=== PATIENT | female | born 1945 | race Caucasian/White ===

== ENCOUNTER → 2020-09-11 | Outpatient (CLI) | payer MEDICARE ==
--- NOTE | 2020-09-11 14:00 | REP ---
INDICATION: CHRONIC KIDNEY DISEASE, STAGE 4. COMPARISON: None. TECHNIQUE: Real-time sonographic evaluation of the kidneys is performed. FINDINGS: There is somewhat increased echotexture of both kidneys suggesting some degree of medical renal disease. There is no hydronephrosis bilaterally. There is a 1 cm cyst in the upper pole the right kidney. The right kidney measures 9.1 x 5.0 x 3.1 cm. Left renal dimensions are 11.0 x 4.4 x 4.1 cm. IMPRESSION: Increased echotexture of the kidneys suggesting medical renal disease. No hydronephrosis. 1 cm cyst upper pole right kidney. <Electronically signed by Gerardo Regalado > 09/11/20 [id number]
--- NOTE | 2020-09-11 14:04 | REP ---
INDICATION: CHRONIC KIDNEY DISEASE, STAGE 4. COMPARISON: None. TECHNIQUE: Real-time sonographic evaluation of urinary bladder performed. FINDINGS: The bladder measures 5.8 x 9.2 x 5.1 cm for total volume of 178 cc. Postvoid residual 71 cc is 40% of the regional volume. Bladder demonstrates no wall thickening, mass or calculus. Ureteral jets could not be visualized in the urinary bladder with Doppler color evaluation. Incidental note is made of a hypoechoic area posterior to the bladder measuring approximately 4.6 x 4.2 x 3.6 cm. This is separate from the bladder. This could represent fluid-filled rectum or portion of the cervix, status post hysterectomy. IMPRESSION: No bladder mass or calculus. Post void residual in the urinary bladder approximately 40% of the regional volume as discussed above. Rounded hypoechoic area posterior to the urinary bladder slightly greater than 4 cm in diameter most likely represents fluid-filled rectum or a portion of the cuff of the cervix status post hysterectomy. <Electronically signed by Gerardo Regalado > 09/11/20 1400
== END ==
LOC: M RAD 12:26
PROVIDERS: ATTEND Internal Medicine Nephrology
DX: N18.4 Chronic kidney disease, stage 4 (severe) (principal); I12.9 Hypertensive chronic kidney disease with stage 1 through stage 4 chronic kidney disease, or unspecified chronic kidney disease; E11.22 Type 2 diabetes mellitus with diabetic chronic kidney disease; N28.1 Cyst of kidney, acquired; N32.89 Other specified disorders of bladder; R39.198 Other difficulties with micturition

== ENCOUNTER → 2020-10-05 | Outpatient (REF) | payer MEDICARE, OTHER ==
[2020-10-05 14:03] LABS: BASO % 0.1 % (0.0-1.0); EOS # 0.5 10^3/uL (0.0-0.5); EOS % 6.3 % (0.0-3.0); HEMATOCRIT 40.1 % (36.0-47.0); HEMOGLOBIN 12.2 g/dl (12.0-15.5); LYMPH # 1.4 10^3/uL (1.5-5.0); LYMPH % 19.2 % (24.0-44.0); MEAN CORPUSCULAR HGB CONC 30.4 g/dl (32.0-36.5); MEAN CORPUSCULAR VOLUME 95.2 fl (80.0-96.0); MONO # 0.5 10^3/uL (0.0-0.8); MONO % 6.9 % (2.0-8.0); NEUTROPHILS % 67.1 % (36.0-66.0); PLATELET COUNT, AUTOMATED 215 10^3/uL (150-450); RED BLOOD COUNT 4.21 10^6/uL (4.00-5.40); WHITE BLOOD COUNT 7.5 10^3/uL (4.0-10.0)
[2020-10-05 14:19] LABS: HEMOGLOBIN A1c 5.3 %
[2020-10-05 14:39] LABS: ALBUMIN 3.3 GM/DL (3.2-5.2); BILIRUBIN,TOTAL 0.5 MG/DL (0.2-1.0); C REACTIVE PROTEIN QUANTITATIV 0.3 MG/DL (0.00-0.30); CALCIUM LEVEL 9.2 MG/DL (8.8-10.2); CHOLESTEROL RISK RATIO 2.65 (<5); CREATININE FOR GFR 2.44 MG/DL (0.55-1.30); FREE T4 1.48 NG/DL (0.76-1.46); GLOMERULAR FILTRATION RATE 20.7 (>39); POTASSIUM SERUM 4.7 MEQ/L (3.5-5.1); THYROID STIMULATING HORMONE 2.31 uIU/ML (0.358-3.740); TOTAL PROTEIN 7.9 GM/DL (6.4-8.2)
== END ==
LOC: M SFHCPLAZ 09:58
PROVIDERS: ATTEND Physician Assistant Medical
DX: I48.19 Other persistent atrial fibrillation (principal); Z13.220 Encounter for screening for lipoid disorders; Z13.1 Encounter for screening for diabetes mellitus; Z79.899 Other long term (current) drug therapy
CPT/HCPCS: 36415; 80053; 80061; 83036; 84439; 84443; 85025; 86140; G0463

== ENCOUNTER → 2020-11-16 | Outpatient (REF) | payer MEDICARE, OTHER ==
[2020-11-16 15:48] LABS: HEMATOCRIT 41.3 % (36.0-47.0)
[2020-11-16 16:27] LABS: FREE T4 1.58 NG/DL (0.76-1.46); PTH INTACT 110.7 PG/ML (18.5-88.0); THYROID STIMULATING HORMONE 1.9 uIU/ML (0.358-3.740); TOTAL 25(OH) VITAMIN D 38.2 NG/ML (30.0-100.0)
== END ==
LOC: M SFHCPLAZ 12:16
PROVIDERS: ATTEND Physician Assistant Medical
DX: E55.9 Vitamin D deficiency, unspecified (principal); E53.8 Deficiency of other specified B group vitamins; G62.9 Polyneuropathy, unspecified; R41.3 Other amnesia
CPT/HCPCS: 36415; 82306; 82607; 82747; 83655; 83970; 84439; 84443; G0463

== ENCOUNTER → 2021-01-14 | Outpatient (CLI) | payer MEDICARE ==
[2021-01-14 16:11] LABS: FOLATE > 24.0 NG/ML; TOTAL PROTEIN 7.6 GM/DL (6.4-8.2); VITAMIN B12 LEVEL 585 PG/ML
[2021-01-14 19:04] LABS: HEMOGLOBIN A1c 5.3 %
== END ==
LOC: M PLALAB 10:56
PROVIDERS: ATTEND Psychiatry & Neurology Neurology
DX: R25.1 Tremor, unspecified (principal); E53.8 Deficiency of other specified B group vitamins

== ENCOUNTER → 2021-02-22 | Outpatient (REF) | payer MEDICARE, OTHER ==
[2021-02-22 13:33] LABS: C REACTIVE PROTEIN QUANTITATIV < 0.30 MG/DL (0.00-0.30); HEPATITIS B SURFACE ANTIBODY NEGATIVE (POSITIVE); IMMUNOGLOBULIN G 1540 MG/DL (681-1648); TOTAL PROTEIN 8.2 GM/DL (6.4-8.2)
[2021-02-22 13:43] LABS: HEPATITIS B SURFACE ANTIGEN NEGATIVE (NEGATIVE)
[2021-02-23 11:15] LABS: ALBUMIN 4.43 GM/DL (3.29-5.55); ALPHA-1-GLOBULIN % 3.6 % (2.9-4.9); ALPHA-2-GLOBULINS 0.87 GM/DL (0.42-0.99); ALPHA-2-GLOBULINS % 10.6 % (7.1-11.8); BETA-1-GLOBULINS 0.55 GM/DL (0.28-0.60); BETA-1-GLOBULINS % 6.7 % (4.7-7.2); BETA-2-GLOBULINS 0.54 GM/DL (0.19-0.55); BETA-2-GLOBULINS % 6.6 % (3.2-6.5); GAMMA GLOBULIN % 18.5 % (11.1-18.8); GAMMA GLOBULINS 1.52 GM/DL (0.65-1.58)
[2021-02-24 00:09] LABS: CYCLIC CITRULLINATED PEPTIDE > 250 units (0-19); HEPATITIS B CORE ANTIBODY IGG Negative (Negative); SSA SJOGRENS A <0.2 AI (0.0-0.9); SSB SJOGRENS B 3.2 AI (0.0-0.9)
== END ==
LOC: M SFHCRHEU 10:04
PROVIDERS: ATTEND Internal Medicine
DX: M06.9 Rheumatoid arthritis, unspecified (principal); H04.129 Dry eye syndrome of unspecified lacrimal gland; Z11.59 Encounter for screening for other viral diseases
CPT/HCPCS: 82784; 84165; 85652; 86140; 86200; 86235; 86431; 86480; 86704; 86706; 86803; 87340; G0463

== ENCOUNTER → 2021-02-25 | Outpatient (REF) | payer MEDICARE, OTHER | LOC: M SFHCRHEU 07:51 | PROVIDERS: ATTEND Internal Medicine | DX: M06.9 Rheumatoid arthritis, unspecified (principal) ==

== ENCOUNTER → 2021-02-26 | Outpatient (CLI) | payer MEDICARE, OTHER ==
--- NOTE | 2021-02-26 16:15 | REP ---
INDICATION: RHEUMATOID ARTHRITIS, UNSPECIFIED COMPARISON: None. TECHNIQUE: Four views bilateral wrists. FINDINGS: There is no evidence of acute fracture, dislocation, or intrinsic bone disease.There are mild scattered vascular calcifications in the soft tissues bilaterally. On the left there is moderate narrowing with subchondral sclerosis between the scaphoid and trapezium, as well as between the trapezium and base of 1st metacarpal, with mild spurring of the trapezium distally. On the right, there is a mild degree of joint space narrowing and subchondral sclerosis at the joint between the trapezium and base of 1st metacarpal, and between the scaphoid and trapezium. IMPRESSION: No fracture or dislocation. Bilateral degenerative changes. <Electronically signed by Gerardo Regalado > 02/26/21 [id number]
--- NOTE | 2021-02-26 16:18 | REP ---
INDICATION: RHEUMATOID ARTHRITIS, UNSPECIFIED COMPARISON: None. TECHNIQUE: Four views bilateral hands. FINDINGS: There is no evidence of acute fracture, dislocation, or intrinsic bone disease.Bilaterally there is narrowing between the scaphoid and trapezium, as well as between the trapezium and base of 1st metacarpal, left greater than right. There is mild diffuse narrowing of the distal interphalangeal joints bilaterally. Vascular calcifications are seen in the region of the wrist soft tissues. IMPRESSION: Bilateral degenerative changes. <Electronically signed by Gerardo Regalado > 02/26/21 [id number]
--- NOTE | 2021-02-26 16:56 | REP ---
INDICATION: RHEUMATOID ARTHRITIS, UNSPECIFIED COMPARISON: None. TECHNIQUE: Four views bilateral feet. FINDINGS: There is no evidence of acute fracture, dislocation, or intrinsic bone disease.There are scattered vascular calcifications in the bilateral foot soft tissues. On the right there is mild joint space narrowing at the 1st metatarsophalangeal joint with moderate hallux valgus deformity. There are hammertoe deformities. On the left there is mild joint space narrowing at the 1st metatarsophalangeal joint with mild hallux valgus deformity. There are mild hammertoe deformities. There is an accessory ossicle at the base of the 5th metatarsal. IMPRESSION: No fracture or dislocation. Degenerative changes as above. <Electronically signed by Gerardo Regalado > 02/26/21 [id number]
== END ==
LOC: M RAD 14:24
PROVIDERS: ATTEND Internal Medicine
DX: M06.9 Rheumatoid arthritis, unspecified (principal)

== ENCOUNTER → 2021-03-22 | Outpatient (REF) | payer MEDICARE, OTHER | LOC: M LAB REF 17:36 | PROVIDERS: ATTEND Internal Medicine Nephrology | DX: N18.4 Chronic kidney disease, stage 4 (severe) (principal) ==

== ENCOUNTER → 2021-03-26 | Outpatient (CLI) | payer MEDICARE, OTHER ==
--- NOTE | 2021-04-05 09:16 | SLEEPHOME ---
DATE: 03/26/2021 ORDERED BY: Rosalie Jewell MD, rheumatology Diagnostic home sleep testing was performed due to concern for the obstructive sleep apnea syndrome in this patient with a history of fatigue. For testing, a nocturnal T3 respiratory monitoring device was used. Continuous record was made of pulse, oxygen saturation, air flow, chest and abdominal strain, and body position. Eleven hours and 59 minutes of data were reviewed. There were 8 hours and 19 minutes marked as time in bed. During the interval marked time in bed, there were 51 respiratory events identified of 10 seconds in duration or greater for a respiratory event index of 6.1. The events were primarily obstructive hypopneas. Baseline pulse rate 61, pulse rate range 56-195, baseline saturation was 92%, saturations fell to 75%. Testing was performed in both the supine and non-supine positions. Respiratory events occurred in both the supine and non-supine positions. IMPRESSION: Abnormal home sleep testing with repetitive respiratory events and oxygen desaturations to 75% with a respiratory event index of 6.1 is consistent with the obstructive sleep apnea syndrome. RECOMMENDATION: The patient should be encouraged to undergo a formal sleep evaluation.
== END ==
LOC: M SLEEP HO 10:15
PROVIDERS: ATTEND Internal Medicine
DX: G47.33 Obstructive sleep apnea (adult) (pediatric) (principal)

== ENCOUNTER 2021-05-09 21:37 | Emergency (ER) | payer MEDICARE, OTHER ==
[~2021-05-09] VITALS: Ht 152.4 cm; Wt 66.4 kg
[2021-05-09] MEDS ORDERED: SUCR1TAB56 (22:06)
[2021-05-09] MEDS ORDERED: ETAN50SY SC (22:06)
[2021-05-09] MEDS ORDERED: FOLI1TAB11 (22:06)
[2021-05-09] MEDS ORDERED: PEPC1TAB5 PO (22:06)
[2021-05-09] MEDS ORDERED: ELIQ2.5T (22:06)
[2021-05-09] MEDS ORDERED: ATOR1TAB19 (22:06)
[2021-05-09] MEDS ORDERED: AMLO1TAB25 (22:06)
[2021-05-09] MEDS ORDERED: ISOS1TAB13 (22:06)
[2021-05-09] MEDS ORDERED: PROP20TA72 (22:06)
[2021-05-10 00:26] VITALS: BP 155/68
== END 2021-05-10 00:27 | disposition home or self-care (01) ==
LOC: M ED 21:37
DX: S00.412A Abrasion of left ear, initial encounter (principal); Z97.4 Presence of external hearing-aid; X58.XXXA Exposure to other specified factors, initial encounter; Y92.098 Other place in other non-institutional residence as the place of occurrence of the external cause; Y93.E8 Activity, other personal hygiene; Y99.8 Other external cause status; I12.9 Hypertensive chronic kidney disease with stage 1 through stage 4 chronic kidney disease, or unspecified chronic kidney disease; E11.22 Type 2 diabetes mellitus with diabetic chronic kidney disease; E78.5 Hyperlipidemia, unspecified; N18.9 Chronic kidney disease, unspecified; Z79.899 Other long term (current) drug therapy; Z79.01 Long term (current) use of anticoagulants; Z88.8 Allergy status to other drugs, medicaments and biological substances; Z86.73 Personal history of transient ischemic attack (TIA), and cerebral infarction without residual deficits

== ENCOUNTER → 2021-07-27 | Outpatient (CLI) | payer MEDICARE ==
[~2021-07-27] MED LIST: AMLO1TAB25; ATOR1TAB19; ELIQ2.5T; ETAN50SY SC; FOLI1TAB11; ISOS1TAB13; PEPC1TAB5 PO; PROP20TA72; SUCR1TAB56
[2021-07-27 15:18] LABS: BASO % 0.3 % (0.0-1.0); EOS # 0.7 10^3/uL (0.0-0.5); EOS % 10.5 % (0.0-3.0); HEMATOCRIT 39.4 % (36.0-47.0); HEMOGLOBIN 12.4 g/dl (12.0-15.5); LYMPH # 1.7 10^3/uL (1.5-5.0); LYMPH % 26.6 % (24.0-44.0); MEAN CORPUSCULAR HEMOGLOBIN 30.1 pg (27.0-33.0); MEAN CORPUSCULAR HGB CONC 31.5 g/dl (32.0-36.5); MEAN CORPUSCULAR VOLUME 95.6 fl (80.0-96.0); MONO # 0.5 10^3/uL (0.0-0.8); MONO % 7.5 % (2.0-8.0); NEUTROPHILS # 3.6 10^3/uL (1.5-8.5); NEUTROPHILS % 54.6 % (36.0-66.0); PLATELET COUNT, AUTOMATED 216 10^3/uL (150-450); RED BLOOD COUNT 4.12 10^6/uL (4.00-5.40); WHITE BLOOD COUNT 6.5 10^3/uL (4.0-10.0)
[2021-07-27 15:51] LABS: ALBUMIN 3.3 GM/DL (3.2-5.2); BILIRUBIN,DIRECT 0.2 MG/DL (0.0-0.2); BILIRUBIN,TOTAL 0.6 MG/DL (0.2-1.0); C REACTIVE PROTEIN QUANTITATIV 0.3 MG/DL (0.00-0.30); CALCIUM LEVEL 8.9 MG/DL (8.8-10.2); CREATININE FOR GFR 1.84 MG/DL (0.55-1.30); GLOMERULAR FILTRATION RATE 28.5 (>39); POTASSIUM SERUM 4.4 MEQ/L (3.5-5.1); TOTAL PROTEIN 7.2 GM/DL (6.4-8.2)
[2021-07-27 15:52] LABS: ERYTHROCYTE SEDIMENTATION RATE 49 mm/hr (0-30)
== END ==
LOC: M PLALAB 12:31
PROVIDERS: ATTEND Internal Medicine
DX: M06.9 Rheumatoid arthritis, unspecified (principal)